=== PATIENT | female | born 2000 | race Two or more races ===

== ENCOUNTER 2019-09-30 07:10 | Inpatient (IN) | payer OTHER ==
[~2019-09-30] VITALS: Ht 162.6 cm; Wt 87.5 kg
[2019-09-30] MEDS ORDERED: LACTATED RINGER'S 1,000 ML IV SCH (08:58)
[2019-09-30] MEDS ORDERED: PHISODERM TOP SOLN 240ML BTL TOP PRN (09:15)
[2019-09-30] MEDS ORDERED: WITCH HAZEL-GLYCERIN PAD TOP PRN (09:15)
[2019-09-30] MEDS ORDERED: DERMOPLAST 60ML BOTTLE TOP PRN (09:15)
[2019-09-30 10:21] LABS: Basophils # (auto) 0 10 ^3/uL (0-0.2); Eosinophils # (auto) 0 10 ^3/uL (0-0.8); Eosinophils % (auto) 0.1 % (0.0-7.0); Hematocrit 25.5 % (36.0-46.0); Hemoglobin 8.1 g/dL (12.2-16.2); Lymphocytes # (auto) 1.3 10 ^3/uL (0.4-5.4); Monocytes # (auto) 0.9 10 ^3/uL (0-1.3); Monocytes % (auto) 6.3 % (0.0-12.0)
[2019-09-30 10:23] LABS: Basophils % (auto) 0.2 % (0.0-2.0); Lymphocytes % (auto) 9.2 % (10.0-50.0); Mean Corpuscular Hemoglobin 21.9 pg (28.0-32.0); Mean Corpuscular Hgb Conc. 31.9 g/dL (32.0-36.0); Mean Corpuscular Volume 68.6 fL (80.0-100.0); Neutrophils # (auto) 11.8 10 ^3/uL (1.6-8.6); Neutrophils % (auto) 84.2 % (37.0-80.0); Nucleated Red Blood Cells % 0.1 %; Platelet Count (auto) 283 10^3/uL (140-450); Red Blood Cells 3.71 10^6/uL (4.0-5.20); Red Cell Distribution Width 16.4 % (11.8-14.3); White Blood Cell 14.1 10^3/uL (4.4-10.8)
[2019-09-30 10:32] LABS: INR 0.93 (0.9-1.15); Partial Thromboplastin Time 26.2 sec (23.64-32.05)
[2019-09-30 10:39] LABS: Albumin 2.6 g/dL (3.4-5.0); Calcium 9.1 mg/dL (8.5-10.1); Potassium 4.1 mmol/L (3.5-5.1)
[2019-09-30 10:44] LABS: BUN/Creatinine Ratio 9.1; Bilirubin, Total 0.3 mg/dL (0.2-1.0); Total Protein 6.9 g/dL (6.4-8.2)
[2019-09-30] MEDS ORDERED: ACETAMINOPHEN 325 MG TAB PO PRN (11:00)
[2019-09-30] MEDS ORDERED: IBUPROFEN 600 MG TAB PO PRN (11:00)
[2019-09-30 14:55] LABS: Urine Bacteria NONE SEEN /hpf (None Seen); Urine Blood 3+ /uL (Negative); Urine Mucus FEW (None Seen); Urine Specific Gravity 1.012 (1.001-1.035); Urine WBC 27 /hpf (0 - 5)
[2019-09-30 15:02] LABS: Alcohol, Urine < 3.0 mg/dL (0-5); Amphetamine Screen, Urine NEGATIVE (NEGATIVE); Barbiturate Scree,Urine NEGATIVE (NEGATIVE); Benzodiazephine Screen, Urine NEGATIVE (NEGATIVE); Cannabinoid Screen, Urine NEGATIVE (NEGATIVE); Cocaine Screen, Urine NEGATIVE (NEGATIVE); Opiate Scree,Urine NEGATIVE (NEGATIVE); Phencyclidine Screen, Urine NEGATIVE (NEGATIVE)
[2019-09-30 15:30] VITALS: BP 101/72
[2019-09-30] MEDS: FERROUS SULFATE 325 MG TAB PO SCH (18:16)
[2019-09-30 19:00] VITALS: BP 109/61
[2019-09-30] MEDS ORDERED: PREN-96 PO (20:29)
[2019-09-30 23:00] VITALS: BP 94/54
[2019-10-01 03:00] VITALS: BP 111/65
[2019-10-01 06:59] VITALS: BP 106/70
[2019-10-01 07:06] LABS: RPR Non Reactive (Non Reactive); Rubella Antibodies, IgG <0.90 index (Immune >0.99)
[2019-10-01] MEDS: FERROUS SULFATE 325 MG TAB PO SCH (07:55)
[2019-10-01 10:37] VITALS: BP 113/59
== END 2019-10-01 11:23 | disposition home or self-care (01) | DRG 776 ==
LOC: LDRP 07:10 → OBSVTOIN 07:10
PROVIDERS: ADMIT Specialist; ATTEND Specialist
PROC: 10E0XZZ Delivery of Products of Conception, External Approach (ICD-10-PCS; principal; 2019-09-30)
DX: O70.0 First degree perineal laceration during delivery (principal)
CPT/HCPCS: 36415; 59025; 80053; 80307; 81001; 81002; 84112; 85025; 85610; 85730; 86592; 86703; 86762; 86790; 86850; 86900; 86901; 87340; 96365; 96366; G0378